=== PATIENT | female | born 1965 | race African-American/Black ===

== ENCOUNTER 2018-03-05 23:02 | Inpatient (IN) | payer SELFPAY ==
[2018-03-05 23:35] LABS: URINE HCG POC HCG NEGATIVE (Negative)
[2018-03-05 23:36] LABS: ADD MAN DIFF? NO
[2018-03-05 23:38] LABS: BASO # 0.1 x10^3/uL (0.0-0.2); BASO % 1 % (0-3); EOS # 0.1 x10^3/uL (0.0-0.7); EOS % 1 % (0-3); HEMATOCRIT 46.7 % (36.0-47.0); HEMOGLOBIN 15.7 g/dL (12.0-15.5); LYMPH # 4.6 x10^3/uL (1.0-4.8); LYMPH % 44 % (24-48); MEAN CORPUSCULAR HEMOGLOBIN 29 pg (25-35); MEAN CORPUSCULAR HGB CONC 34 g/dL (31-37); MEAN CORPUSCULAR VOLUME 85 fL (79-100); MONO # 0.7 x10^3/uL (0.0-1.1); MONO % 7 % (0-9); NEUT # 4.9 x10^3uL (1.8-7.7); NEUT % 47 % (31-73); PLATELET COUNT 284 x10^3/uL (140-400); RED BLOOD COUNT 5.52 x10^6/uL (3.50-5.40); RED CELL DISTRIBUTION WIDTH 13.9 % (11.5-14.5); WHITE BLOOD COUNT 10.4 x10^3/uL (4.0-11.0)
[2018-03-05 23:40] LABS: BILIRUBIN,URINE NEGATIVE (NEG); CLARITY,URINE CLEAR; COLOR,URINE YELLOW; GLUCOSE,URINE NEGATIVE (NEG); NITRITE,URINE NEGATIVE (NEG); PROTEIN,URINE 100 mg/dL (NEG-TRACE); UROBILINOGEN,URINE 0.2 mg/dL (0.2 mg/dL)
[2018-03-05 23:45] LABS: BACTERIA,URINE 0 /HPF (0-FEW); HYALINE CASTS, URINE OCCASIONAL /HPF; SQUAMOUS EPITHELIAL CELL,UR OCC /LPF; WBC,URINE OCC /HPF (0-4)
[2018-03-05 23:47] LABS: ETHANOL < 10 mg/dL (0-10)
[2018-03-05 23:47] LABS: AMPHETAMINE/METHAMPHETAMINE NEG (NEG); BARBITURATES NEG (NEG); BENZODIAZEPINES POS (NEG); CANNABINOIDS NEG (NEG); COCAINE NEG (NEG); ETHANOL, URINE NEG (NEG); METHADONE NEG (NEG); OPIATES POS (NEG); PHENCYCLIDINE NEG (NEG)
[2018-03-05 23:53] LABS: ALBUMIN 4.7 g/dL (3.4-5.0); ALBUMIN/GLOBULIN RATIO 1.2 (1.0-1.7); ALK PHOS 146 U/L (46-116); ALT (SGPT) 17 U/L (14-59); ANION GAP 21 (6-14); AST (SGOT) 12 U/L (15-37); BLOOD UREA NITROGEN 10 mg/dL (7-20); BUN/CREATININE RATIO 10 (6-20); CALCIUM 9.5 mg/dL (8.5-10.1); CARBON DIOXIDE 16 mmol/L (21-32); CHLORIDE 106 mmol/L (98-107); GLUCOSE 142 mg/dL (70-99); SODIUM 143 mmol/L (136-145); TOTAL BILIRUBIN 0.2 mg/dL (0.2-1.0); TOTAL PROTEIN 8.5 g/dL (6.4-8.2)
[2018-03-05 23:54] LABS: TROPONINI < 0.017 ng/mL (0.000-0.055)
[2018-03-06] MEDS ORDERED: POTASSIUM CHLORIDE 20MEQ 50 ML IV
[2018-03-06] MEDS ORDERED: ONDANSETRON PF 4 MG/2 ML VIAL. IV (00:30)
[2018-03-06] MEDS ORDERED: MORPHINE SULFATE 4 MG/ML DISP.SYRIN. IV (00:30)
[2018-03-06] MEDS: IV NORMAL SALINE 1000ML BAG 1,000 ML IV ×3 (04:00→23:12)
[2018-03-06] MEDS: NICOTINE 21MG PATCH. TD (14:51)
[2018-03-06] MEDS: POTASSIUM CHLORIDE 20 MEQ TABLET.ER. PO ×2 (14:53→20:42)
[2018-03-06] MEDS: GADOBUTROL 7.5 MMOL/7.5 ML VIAL IV (15:30)
[2018-03-06] MEDS: GADOBUTROL 10 MMOL/10 ML VIAL IV (16:03)
[2018-03-06] MEDS: amLODIPine BESYLATE 10 MG TABLET PO (20:42)
[2018-03-06] MEDS: ACETAMINOPHEN/CODEINE 300/30MG TABLET. PO (22:12)
[2018-03-07 05:29] LABS: HEMATOCRIT 41.9 % (36.0-47.0); MEAN CORPUSCULAR HEMOGLOBIN 28 pg (25-35); MEAN CORPUSCULAR HGB CONC 34 g/dL (31-37); MEAN CORPUSCULAR VOLUME 84 fL (79-100); PLATELET COUNT 203 x10^3/uL (140-400); RED BLOOD COUNT 4.98 x10^6/uL (3.50-5.40); WHITE BLOOD COUNT 7.6 x10^3/uL (4.0-11.0)
[2018-03-07 05:39] LABS: ANION GAP 10 (6-14); BLOOD UREA NITROGEN 6 mg/dL (7-20); CALCIUM 8.8 mg/dL (8.5-10.1); CARBON DIOXIDE 22 mmol/L (21-32); CHLORIDE 111 mmol/L (98-107); CREATININE 0.7 mg/dL (0.6-1.0); GFR 105.9; GLUCOSE 99 mg/dL (70-99); POTASSIUM 3.7 mmol/L (3.5-5.1); SODIUM 143 mmol/L (136-145)
[2018-03-07] MEDS: NICOTINE 21MG PATCH. TD (08:20)
[2018-03-07] MEDS: LOSARTAN POTASSIUM 50 MG TABLET. PO (08:20)
[2018-03-07 08:23] LABS: SEDIMENTATION RATE 2 (0-25)
[2018-03-07] MEDS: levETIRAcetam 500 MG TABLET PO (09:30)
[2018-03-11 07:29] LABS: POC GLUCOSE 148 mg/dL (70-99)
== END 2018-03-07 10:09 | disposition home or self-care (01) | DRG 101 ==
LOC: 6 SOUTH 03-06 00:24 → ER 23:02
PROVIDERS: Internal Medicine
DX: G40.409 Other generalized epilepsy and epileptic syndromes, not intractable, without status epilepticus (principal); E87.6 Hypokalemia; F17.210 Nicotine dependence, cigarettes, uncomplicated; I10 Essential (primary) hypertension; Z82.49 Family history of ischemic heart disease and other diseases of the circulatory system; F32.9 Major depressive disorder, single episode, unspecified; F41.9 Anxiety disorder, unspecified; F99 Mental disorder, not otherwise specified
CPT/HCPCS: 36415; 70450; 70553; 71045; 80048; 80053; 80307; 81001; 81025; 84484; 85025; 85027; 85651; 93880; 95816; 96361; 96365; 96375; 96376; 99285-25; A9585; G0480; J1953; J2060; J7030